=== PATIENT | male | born 1965 | race African-American/Black ===

== ENCOUNTER 2021-09-25 15:56 | Inpatient (IN) | payer OTHER ==
[~2021-09-25] VITALS: Ht 170.2 cm; Wt 64.6 kg
[2021-09-25] MEDS ORDERED: ASPIRIN CHEWABLE 81 MG TABLET. PO ONE (16:15)
[2021-09-25] MEDS ORDERED: IV NORMAL SALINE 1000ML BAG 1,000 ML IV ONE (16:15)
--- NOTE | 2021-09-25 16:17 | ED.ADGEN ---
General Adult EDM: Chief Complaint: CHEST PAIN HPI: HPI: Patient is a 55 year old male coming in for chest "discomfort" for the past 2 to 3 hours. Patient states he was sitting on his couch when the pain started. Patient denies any prior history of cardiac disease or pain like this. States he had just eaten 3 bowls of chicken soup. Patient has a history of hypertension and takes a blood pressure medication (he does not remember the name of) occasionally because he "does not want to get used to it", he did take a dose of his hypertension medicine today. No significant family medical history of cardiac disease. Denies any tobacco, alcohol, or drug use. Denies any associated symptoms. Patient states he has had both Covid vaccine. Review of Systems: Review of Systems: All other systems within normal limits except for as noted in the HPI Current Medications: Current Medications Medications (Trade) Dose Ordered Sig/Bryant Start Time Stop Time Status Last Admin Dose Admin Acetaminophen (Tylenol) 650 mg PRN Q4HRS PRN 09/25/21 17:15 09/26/21 17:14 UNV Aspirin (Aspirin Chewable) 324 mg 1X ONCE 09/25/21 16:15 09/25/21 16:38 DC 09/25/21 16:25 324 MG Aspirin (Ecotrin) 81 mg STK-MED ONCE 09/25/21 16:18 09/25/21 16:19 DC Fentanyl Citrate (Fentanyl 2ml Vial) 50 mcg PRN Q1HR PRN 09/25/21 17:15 09/26/21 17:14 UNV Heparin Sodium (Porcine) (Heparin Sodium) 1,700 unit PRN Q6HRS PRN 09/25/21 17:15 UNV Heparin Sodium/ Dextrose 250 ml @ 0 mls/hr CONT PRN 09/25/21 17:15 UNV Nitroglycerin (Nitrostat) 0.4 mg PRN Q5MIN PRN 09/25/21 16:15 09/25/21 16:37 0.4 MG Ondansetron HCl (Zofran) 4 mg PRN Q8HRS PRN 09/25/21 17:15 09/26/21 17:14 UNV Sodium Chloride 1,000 ml @ 1,000 mls/hr 1X ONCE 09/25/21 16:15 09/25/21 17:14 DC 09/25/21 16:23 1,000 MLS/HR Allergies: Allergies: Allergies Coded Allergies Type Severity Reaction Last Updated Verified No Known Drug Allergies 09/25/21 No Physical Exam: PE: Constitutional: Well developed, well nourished, no acute distress, non-toxic appearance. [] HENT: Normocephalic, atraumatic, bilateral external ears normal, nose normal. [] Eyes: PERRLA, conjunctiva normal, no discharge. [] Neck: No rigidity, supple, no stridor. [] Cardiovascular: Tachycardic, regular rhythm, brisk cap refill [] Lungs & Thorax: Non labored symmetric respirations, no tachypnea or respiratory distress [] Abdomen: Soft, nondistended. Skin: Warm, dry, no erythema, no rash. [] Back: Unremarkable Extremities: No deformities, range of motion grossly intact, no lower extremity edema [] Neurologic: Alert and oriented X 3, no focal deficits noted. [] Psychologic: Affect normal, judgement normal, mood normal. [] Current Patient Data: Labs: Laboratory Tests Test 09/25/21 16:20 White Blood Count 9.2 x10^3/uL (4.0-11.0) Red Blood Count 4.68 x10^6/uL (4.30-5.70) Hemoglobin 14.9 g/dL (13.0-17.5) Hematocrit 43.8 % (39.0-53.0) Mean Corpuscular Volume 94 fL (79-100) Mean Corpuscular Hemoglobin 32 pg (25-35) Mean Corpuscular Hemoglobin Concent 34 g/dL (31-37) Red Cell Distribution Width 13.2 % (11.5-14.5) Platelet Count 230 x10^3/uL (140-400) Neutrophils (%) (Auto) 80 % (31-73) H Lymphocytes (%) (Auto) 13 % (24-48) L Monocytes (%) (Auto) 5 % (0-9) Eosinophils (%) (Auto) 2 % (0-3) Basophils (%) (Auto) 1 % (0-3) Neutrophils # (Auto) 7.3 x10^3/uL (1.8-7.7) Lymphocytes # (Auto) 1.2 x10^3/uL (1.0-4.8) Monocytes # (Auto) 0.4 x10^3/uL (0.0-1.1) Eosinophils # (Auto) 0.2 x10^3/uL (0.0-0.7) Basophils # (Auto) 0.1 x10^3/uL (0.0-0.2) Urine Collection Type Unknown Urine Color Yellow Urine Clarity Clear Urine pH 6.0 (<5.0-8.0) Urine Specific [place] 1.025 (1.000-1.030) Urine Protein Negative mg/dL (NEG-TRACE) Urine Glucose (UA) Negative mg/dL (NEG) Urine Ketones (Stick) Negative mg/dL (NEG) Urine Blood Negative (NEG) Urine Nitrite Negative (NEG) Urine Bilirubin Negative (NEG) Urine Urobilinogen Dipstick 0.2 mg/dL (0.2 mg/dL) Urine Leukocyte Esterase Negative (NEG) Urine RBC Occ /HPF (0-2) Urine WBC Occ /HPF (0-4) Urine Bacteria 0 /HPF (0-FEW) Urine Mucus Slight /LPF Sodium Level 140 mmol/L (136-145) Potassium Level 4.2 mmol/L (3.5-5.1) Chloride Level 103 mmol/L (98-107) Carbon Dioxide Level 31 mmol/L (21-32) Anion Gap 6 (6-14) Blood Urea Nitrogen 18 mg/dL (8-26) Creatinine 1.3 mg/dL (0.7-1.3) Estimated GFR (Cockcroft-Gault) 56.9 BUN/Creatinine Ratio 14 (6-20) Glucose Level 139 mg/dL (70-99) H Calcium Level 9.0 mg/dL (8.5-10.1) Phosphorus Level 3.4 mg/dL (2.6-4.7) Magnesium Level 2.1 mg/dL (1.8-2.4) Total Bilirubin 0.6 mg/dL (0.2-1.0) Aspartate Amino Transferase (AST) 20 U/L (15-37) Alanine Aminotransferase (ALT) 25 U/L (16-63) Alkaline Phosphatase 90 U/L (46-116) Troponin I High Sensitivity 6269 ng/L (4-75) H TE-Jjo-J-Type Natriuretic Peptide 1839 pg/mL (0-124) H Total Protein 7.8 g/dL (6.4-8.2) Albumin 3.8 g/dL (3.4-5.0) Albumin/Globulin Ratio 1.0 (1.0-1.7) Lipase 81 U/L (73-393) Urine Opiates Screen Neg (NEG) Urine Methadone Screen Neg (NEG) Urine Barbiturates Neg (NEG) Urine Phencyclidine Screen Neg (NEG) Urine Amphetamine/Methamphetamine Neg (NEG) Urine Benzodiazepines Screen Neg (NEG) Urine Cocaine Screen Neg (NEG) Urine Cannabinoids Screen Neg (NEG) Ethyl Alcohol Level < 10 mg/dL (0-10) Urine Ethyl Alcohol Neg (NEG) Laboratory Tests 09/25/21 16:20 Laboratory Tests 09/25/21 16:20 Vital Signs: Vital Signs Date Time Temp Pulse Resp B/P (MAP) Pulse Ox O2 Delivery O2 Flow Rate FiO2 09/25/21 17:08 84 18 151/86 (107) 98 Room Air 09/25/21 16:03 99.5 99.5 EKG: EK :Sinus rhythm, heart rate 105 bpm, left axis deviation, LVH with strain. No prior EKG for comparison, upright T in V1, inverted nipple no STEMI 1709: Sinus rhythm, heart rate 85 beats minute, no significant change from previous EKG [] Heart Score: C/O Chest Pain: No HEART Score for Chest Pain: HEART Score for Chest Pain Response (Comments) Value History Moderately Suspicious 1 ECG Nonspecific Repolarizatio 1 Age >45 - < 65 1 Risk Factors 1 or 2 Risk Factors 1 Total 4 Risk Factors: Risk Factors: DM, Current or recent (<one month) smoker, HTN, HLP, family history of CAD, obesity. Risk Scores: Score 0 - 3: 2.5% MACE over next 6 weeks - Discharge Home Score 4 - 6: 20.3% MACE over next 6 weeks - Admit for Clinical Observation Score 7 - 10: 72.7% MACE over next 6 weeks - Early Invasive Strategies Radiology/Procedures: Radiology/Procedures: Bedside ultrasound showed cardiomegaly with wall thickening of heart, no right ventricular strain, no pericardial effusion. Comfort dropped from 8 to 2:01 sublingual nitroglycerin [facility] [address] [place] [address] IMAGING REPORT Signed PATIENT: ANDRAE BLACKWELL ACCOUNT: [id number] : 05/17/1951 LOCATION: ER AGE: 70 SEX: M EXAM STATUS: PRE ER ORD. PHYSICIAN: PEREZ KHAN MD REASON: right weakness PROCEDURE: CT CODE STROKE HEAD WO INDICATION: Reason: right weakness / Spl. Instructions: / History: COMPARISON: September 21, 2017 TECHNIQUE: Axial CT images obtained through the head without intravenous contrast. One or more of the following individualized dose reduction techniques were utilized for this examination: 1. Automated exposure control; 2. Adjustment of the mA and/or kV according to patient size; 3. Use of iterative reconstruction technique. FINDINGS: No intracranial hemorrhage. No significant midline shift. Ventricles and sulci are globally prominent. Scattered foci of low attenuation within the white matter. Calcific atherosclerosis. Deformity of the right maxillary region with plate and screws could be from prior injury and surgery. IMPRESSION: * No acute intracranial hemorrhage. * Scattered regions of low attenuation within the white matter. Non-specific in nature but a common finding and frequently secondary to small vessel ischemic disease. If there is high concern for acute causes clinically MRI could better assess acuity. Report called to ER at 12:25 PM on date of exam * Focus of low density is again seen within the left cerebral hemisphere posteriorly and right cerebellum which could be from prior insult. Electronically signed by: Isabell Mckee MD (09/25/2021 12:30 PM) DESKTOP- [id number] DICTATED and SIGNED BY: ISABELL MCKEE MD DATE: 09/25/21 [id number] 0 Course & Med Decision Making: Course & Med Decision Making Pertinent Labs and Imaging studies reviewed. (See chart for details) Discussed case with finishing machine operator automatic, Dr. Torres, who agrees with heparin drip. Requesting n.p.o. at midnight for possible Body Component Engineer tomorrow. Patient admitted to hospitalist Dr. Barry [] Bryan Disclaimer: Bryan Disclaimer: This electronic medical record was generated, in whole or in part, using a voice recognition dictation system. Departure Departure Impression: Primary Impression: NSTEMI (non-ST elevated myocardial infarction) Disposition: ADMITTED INPATIENT Admitting Physician: HIMS Condition: GUARDED PEREZ KHAN MD Sep 25, 2021 16:17
[2021-09-25] MEDS ORDERED: ASPIRIN ENTERIC COATED 81 MG TABLET.DR. PO ONE (16:18)
[2021-09-25] MEDS: NITROGLYCERIN SUBLINGUAL 0.4 MG BOTTLE OF 25. SL PRN ×3 (16:22→16:37)
[2021-09-25 16:36] LABS: BASO # 0.1 x10^3/uL (0.0-0.2); BASO % 1 % (0-3); BILIRUBIN,URINE NEGATIVE (NEG); CLARITY,URINE CLEAR; COLOR,URINE YELLOW; EOS # 0.2 x10^3/uL (0.0-0.7); EOS % 2 % (0-3); HEMATOCRIT 43.8 % (39.0-53.0); HEMOGLOBIN 14.9 g/dL (13.0-17.5); LYMPH # 1.2 x10^3/uL (1.0-4.8); LYMPH % 13 % (24-48); MEAN CORPUSCULAR HEMOGLOBIN 32 pg (25-35); MEAN CORPUSCULAR HGB CONC 34 g/dL (31-37); MEAN CORPUSCULAR VOLUME 94 fL (79-100); MONO # 0.4 x10^3/uL (0.0-1.1); MONO % 5 % (0-9); NEUT # 7.3 x10^3/uL (1.8-7.7); NEUT % 80 % (31-73); NITRITE,URINE NEGATIVE (NEG); PLATELET COUNT 230 x10^3/uL (140-400); PROTEIN,URINE NEGATIVE (NEG-TRACE); RED BLOOD COUNT 4.68 x10^6/uL (4.30-5.70); RED CELL DISTRIBUTION WIDTH 13.2 % (11.5-14.5); UROBILINOGEN,URINE 0.2 mg/dL (0.2 mg/dL); WHITE BLOOD COUNT 9.2 x10^3/uL (4.0-11.0)
[2021-09-25 16:45] LABS: BACTERIA,URINE 0 /HPF (0-FEW); RBC,URINE OCC /HPF (0-2); WBC,URINE OCC /HPF (0-4)
[2021-09-25 16:48] LABS: CREATININE 1.3 mg/dL (0.7-1.3); GFR 56.9; POTASSIUM 4.2 mmol/L (3.5-5.1)
--- NOTE | 2021-09-25 16:49 | RAD ---
XR CHEST 1V History: Reason: chest pain / Spl. Instructions: / History: Comparison: July 22, 2009 Findings: Cardiomegaly. Mild interstitial thickening. No pleural effusion. No pneumothorax. Calcified right upp er lung pulmonary nodule, likely prior granulomatous disease. Resistive curvature of the thoracolumba r spine. Impression: 1. Mild diffuse interstitial thickening, may represent pulmonary edema. 2. Unchanged cardiomegaly. Electronically signed by: Mark Kruse DO (09/25/2021 4:46 PM) [facility]
[2021-09-25 16:50] LABS: AMPHETAMINE/METHAMPHETAMINE NEG (NEG); BARBITURATES NEG (NEG); BENZODIAZEPINES NEG (NEG); CANNABINOIDS NEG (NEG); COCAINE NEG (NEG); METHADONE NEG (NEG); OPIATES NEG (NEG); PHENCYCLIDINE NEG (NEG)
[2021-09-25 16:54] LABS: ALBUMIN 3.8 g/dL (3.4-5.0); MAGNESIUM 2.1 mg/dL (1.8-2.4); PHOSPHORUS 3.4 mg/dL (2.6-4.7); TOTAL BILIRUBIN 0.6 mg/dL (0.2-1.0); TOTAL PROTEIN 7.8 g/dL (6.4-8.2)
[2021-09-25] MEDS ORDERED: HEPARIN for IV BOLUS 10,000 UNIT/10 ML VIAL. IV PRN (17:15)
[2021-09-25] MEDS ORDERED: HEPARIN for IV BOLUS 10,000 UNIT/10 ML VIAL. IV ONE (17:15)
[2021-09-25] MEDS ORDERED: ONDANSETRON PF 4 MG/2 ML VIAL. IVP PRN (17:15)
[2021-09-25] MEDS ORDERED: ACETAMINOPHEN 325 MG TABLET. PO PRN (17:15)
[2021-09-25] MEDS ORDERED: HEPARIN 25,000UTS/250ML PREMIX 250 ML IV ONE (17:31)
[2021-09-25 17:32] LABS: PROTHROMBIN TIME PATIENT 13.6 SEC (11.7-14.0)
[2021-09-25] MEDS: HEPARIN 25,000UTS/250ML PREMIX 250 ML IV PRN (17:49)
[2021-09-25 19:00] VITALS: BP 178/88
--- NOTE | 2021-09-25 19:35 | NUR ---
Patient, Joey Diaz, admitted to room 671, but admission staff had some difficulty with admitting to determined room, so he is moved to room 664, per bed, and Admitting staff able to place in room 664. 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
--- NOTE | 2021-09-25 19:39 | HP ---
DATE OF SERVICE: 09/25/2021 ADMIT DATE: 09/25/2021 CHIEF COMPLAINT: Chest discomfort. HISTORY OF PRESENT ILLNESS: The patient is a pleasant middle-aged male who felt well this morning. He was feeling so well, he ate some chicken soup and he decided to go ahead and had 4 bowls of it. After that he started having chest discomfort. He came to the ER with his . We checked labs. He has got a troponin of 6269. I discussed the case with ER physician. We placed him on a heparin drip. We consulted Cardiology. PAST MEDICAL HISTORY: Noncompliance. Cardiomegaly. ALLERGIES: None. FAMILY HISTORY: Coronary artery disease. SOCIAL HISTORY: He does not drink, smoke or take drugs. He is . MEDICATIONS: Reviewed, please refer to the MRAD. REVIEW OF SYSTEMS: GENERAL: No history of weight change, weakness or fevers. SKIN: No bruising, hair changes or rashes. EYES: No blurred, double or loss of vision. NOSE AND THROAT: No history of nosebleeds, hoarseness or sore throat. HEART: No history of palpitations, chest pain or shortness of breath on exertion. LUNGS: Denies cough, hemoptysis, wheezing or shortness of breath. GASTROINTESTINAL: Denies changes in appetite, nausea, vomiting, diarrhea or constipation. GENITOURINARY: No history of frequency, urgency, hesitancy or nocturia. NEUROLOGIC: Denies history of numbness, tingling, tremor or weakness. PSYCHIATRIC: No history of panic, anxiety or depression. ENDOCRINE: No history of heat or cold intolerance, polyuria or polydipsia. EXTREMITIES: Denies muscle weakness, joint pain, pain on walking or stiffness. PHYSICAL EXAMINATION: VITALS: Within normal limits and are stable. GENERAL: No apparent distress. Alert and oriented. HEENT: Normal cephalic atraumatic, external auditory canals are patent EYES: Extraocular muscles are intact, pupils are equally round and reactive to light and accommodation MUSCULOSKELETAL: Well developed, well nourished, good range of motion ENDOCRINE: No thyromegaly was palpated LYMPHATICS: No cervical chain or axillary nodes were noted HEMATOPOIETIC: No bruising NECK: Supple, no JVD, no thyromegaly was noted. LUNGS: Clear to auscultation in all lung ramos without rhonchi or wheezing. HEART: RRR, S1, S2 present. Peripheral pulses intact, no obvious murmurs were noted. ABDOMEN: Soft, nontender. Positive bowel sounds no organomegaly, normal bowel sounds. EXTREMITIES: Without any cyanosis, clubbing, or edema. Pedal pulses intact, Homans sign is negative. NEUROLOGIC: Normal speech, normal tone. A and O x 3, moves all extremities, no obvious focal deficits. PSYCHIATRIC: Normal affect, normal mood. Stable. SKIN: No ulcerations or rashes, good skin turgor, no jaundice. VASCULAR: Good capillary refill, neurovascular bundle appears to be intact. LABORATORY DATA: Troponin is 6269. BNP 1839, glucose 139. Hematology is normal. Electrolytes are normal. Drug screen negative. INR is 1.0. Urinalysis negative. COVID testing negative. Chest x-ray, mild diffuse interstitial thickening, may represent pulmonary edema and unchanged cardiomegaly. ASSESSMENT AND PLAN: Acute myocardial infarction. We have started the patient on a heparin drip. We are doing serial enzymes, serial EKGs, cardiac monitoring. We consulted Cardiology. tiera Benson. N.p.o. ISABEL/Chayo DR: Zacarias TID: [id number]
[2021-09-25] MEDS: fentaNYL PF VIAL 100 MCG/2 ML VIAL IVP PRN (20:10)
--- NOTE | 2021-09-25 20:29 | EKG ---
[facility] [address] [place] [address] Test Date: 2021-09-25 Test Time: 16:10:54 Pat Name: ROSEANNA GUADALUPE Department: Room: [facility] Gender: M Treater: : 1965 Requested By: PEREZ KHAN Order Number: [id number] Reading MD: Pankaj Nazario MD Measurements Intervals [place] Rate: 105 P: 59 SD: 124 QRS: -29 QRSD: 112 T: 94 QT: 346 QTc: 461 Interpretive Statements SINUS TACHYCARDIA LEFT ATRIAL ABNORMALITY LEFTWARD AXIS LVH WITH REPOLARIZATION ABNORMALITY ABNORMAL ECG Electronically Signed On 09-26-2021 2:52:09 JEWELRY JOBBER by Pankaj Nazario MD
--- NOTE | 2021-09-25 20:29 | EKG ---
[facility] [address] [place] [address] Test Date: 2021-09-25 Test Time: 17:09:42 Pat Name: ROSEANNA GUADALUPE Department: Room: [facility] Gender: M Paramedic Rn: : 1965 Requested By: PEREZ KHAN Order Number: [id number] Reading MD: Calin Beebe Measurements Intervals [place] Rate: 85 P: 49 [place]: 126 QRS: -30 QRSD: 114 T: 118 QT: 398 QTc: 480 Interpretive Statements SINUS RHYTHM COMPLEX(ES) WITH ABERRANT INTRAVENTRICULAR CONDUCTION LEFT ATRIAL ABNORMALITY ABNORMAL LEFT AXIS DEVIATION LVH WITH REPOLARIZATION ABNORMALITY PROLONGED QT ABNORMAL ECG RI6.02 Compared to ECG 09/25/2021 16:10:54 Prolonged QT interval now present Sinus tachycardia no longer present Electronically Signed On 09-26-2021 9:01:16 CONSTRUCTION IRONWORKER by Calin Beebe
[2021-09-25] MEDS ORDERED: ZOLPIDEM 5 MG TABLET. PO PRN (21:15)
[2021-09-25 22:35] VITALS: BP 163/102
[2021-09-26] VITALS (12 sets, daily range): BP systolic 152–185; BP diastolic 80–94
[2021-09-26] MEDS: fentaNYL PF VIAL 100 MCG/2 ML VIAL IVP PRN (01:37)
[2021-09-26] MEDS ORDERED: blood pressure meds (02:47)
[2021-09-26] MEDS ORDERED: LISI20TA18 PO (06:45)
[2021-09-26] MEDS ORDERED: CARV25TA2 PO (06:45)
--- NOTE | 2021-09-26 09:34 | PDOC2 ---
AMARI MORE NEEDLE VALVE OPERATOR 09/26/21 0934: CARDIAC CONSULT DATE OF CONSULT Date of Consult DATE: 09/26/21 TIME: 09:27 REASON FOR CONSULT Reason for Consult: NSTEMI REFERRING PHYSICIAN Referring Physician: Dr. Oviedo SOURCE Source: Chart review, Patient HISTORY OF PRESENT ILLNESS HISTORY OF PRESENT ILLNESS This is a 55 yo female who presented secondary to chest pain. Patient reports having large lunch yesterday and began having aching pain in his central chest a couple of hours later. Initially thought pain was due to overeating, but did not resolved so he came into the ED for further evaluation and treatment. Patient denies any associated dizziness, diaphoresis, palpitations, or shortness of breath. Pain did not radiate. He does have a history of hypertension. Has not been compliant with his medications due to impotence. Blood pressure was significantly elevated upon arrival. Reports pain resolved following ASA therapy in ED. PAST MEDICAL HISTORY Cardiovascular: HTN PAST SURGICAL HISTORY Past Surgical History: No pertinent history FAMILY HISTORY Family History: Heart Disease SOCIAL HISTORY Smoke: No ALCOHOL: social Drugs: None Lives: with Family CURRENT MEDICATIONS CURRENT MEDICATIONS Current Medications Medications (Trade) Dose Ordered Sig/Bryant Route PRN Reason Start Time Stop Time Status Last Admin Dose Admin Aspirin (Aspirin Chewable) 324 mg 1X ONCE PO 09/25/21 16:15 09/25/21 16:38 DC 09/25/21 16:25 Nitroglycerin (Nitrostat) 0.4 mg PRN Q5MIN PRN SL CHEST PAIN 09/25/21 16:15 09/25/21 16:37 Sodium Chloride 1,000 ml @ 1,000 mls/hr 1X ONCE IV 09/25/21 16:15 09/25/21 17:14 DC 09/25/21 16:23 Heparin Sodium (Porcine) (Heparin Sodium) 4,000 unit 1X ONCE IV 09/25/21 17:15 09/25/21 17:42 DC 09/25/21 17:43 Heparin Sodium/ Dextrose 250 ml @ 8.136 mls/ hr CONT PRN IV PER PROTOCOL 09/25/21 17:15 09/25/21 17:49 Fentanyl Citrate (Fentanyl 2ml Vial) 50 mcg PRN Q1HR PRN IVP PAIN 09/25/21 17:15 09/26/21 17:14 09/26/21 01:37 ALLERGIES ALLERGIES: Coded Allergies: No Known Drug Allergies (Unverified , 09/25/21) ROS Review of System 14 point ROS conducted with pertinent positives noted above in HPI PHYSICAL EXAM General: Alert, Oriented X3, Cooperative, No acute distress HEENT: Atraumatic Lungs: Clear to auscultation, Normal air movement Heart: Regular rate, No murmurs Abdomen: Soft, No tenderness Extremities: No edema, Normal pulses Skin: No breakdown, No significant lesion Neuro: Normal speech, Sensation intact Psych/Mental Status: Mental status NL, Mood NL MUSCULOSKELETAL: Osteoarthritic changes both hands VITALS/I&O VITALS/I&O: Vital Signs Date Time Temp Pulse Resp B/P (MAP) Pulse Ox O2 Delivery O2 Flow Rate FiO2 09/26/21 07:00 97.4 77 16 159/94 (115) 98 Room Air 97.4 I & O 09/25/21 09/25/21 09/26/21 15:00 23:00 07:00 Intake Total 0 ml 0 ml Output Total 150 ml 100 ml Balance -150 ml -100 ml LABS Lab: Laboratory Tests Test 09/25/21 16:20 09/25/21 17:11 09/26/21 01:20 09/26/21 07:50 White Blood Count 9.2 x10^3/uL (4.0-11.0) Red Blood Count 4.68 x10^6/uL (4.30-5.70) Hemoglobin 14.9 g/dL (13.0-17.5) Hematocrit 43.8 % (39.0-53.0) Mean Corpuscular Volume 94 fL (79-100) Mean Corpuscular Hemoglobin 32 pg (25-35) Mean Corpuscular Hemoglobin Concent 34 g/dL (31-37) Red Cell Distribution Width 13.2 % (11.5-14.5) Platelet Count 230 x10^3/uL (140-400) Neutrophils (%) (Auto) 80 % (31-73) H Lymphocytes (%) (Auto) 13 % (24-48) L Monocytes (%) (Auto) 5 % (0-9) Eosinophils (%) (Auto) 2 % (0-3) Basophils (%) (Auto) 1 % (0-3) Neutrophils # (Auto) 7.3 x10^3/uL (1.8-7.7) Lymphocytes # (Auto) 1.2 x10^3/uL (1.0-4.8) Monocytes # (Auto) 0.4 x10^3/uL (0.0-1.1) Eosinophils # (Auto) 0.2 x10^3/uL (0.0-0.7) Basophils # (Auto) 0.1 x10^3/uL (0.0-0.2) Prothrombin Time 13.6 SEC (11.7-14.0) Prothrombin Time INR 1.0 (0.8-1.1) Activated Partial Thromboplast Time 33 SEC (24-38) Urine Collection Type Unknown Urine Color Yellow Urine Clarity Clear Urine pH 6.0 (<5.0-8.0) Urine Specific [place] 1.025 (1.000-1.030) Urine Protein Negative mg/dL (NEG-TRACE) Urine Glucose (UA) Negative mg/dL (NEG) Urine Ketones (Stick) Negative mg/dL (NEG) Urine Blood Negative (NEG) Urine Nitrite Negative (NEG) Urine Bilirubin Negative (NEG) Urine Urobilinogen Dipstick 0.2 mg/dL (0.2 mg/dL) Urine Leukocyte Esterase Negative (NEG) Urine RBC Occ /HPF (0-2) Urine WBC Occ /HPF (0-4) Urine Bacteria 0 /HPF (0-FEW) Urine Mucus Slight /LPF Sodium Level 140 mmol/L (136-145) Potassium Level 4.2 mmol/L (3.5-5.1) Chloride Level 103 mmol/L (98-107) Carbon Dioxide Level 31 mmol/L (21-32) Anion Gap 6 (6-14) Blood Urea Nitrogen 18 mg/dL (8-26) Creatinine 1.3 mg/dL (0.7-1.3) Estimated GFR (Cockcroft-Gault) 56.9 BUN/Creatinine Ratio 14 (6-20) Glucose Level 139 mg/dL (70-99) H Calcium Level 9.0 mg/dL (8.5-10.1) Phosphorus Level 3.4 mg/dL (2.6-4.7) Magnesium Level 2.1 mg/dL (1.8-2.4) Total Bilirubin 0.6 mg/dL (0.2-1.0) Aspartate Amino Transferase (AST) 20 U/L (15-37) Alanine Aminotransferase (ALT) 25 U/L (16-63) Alkaline Phosphatase 90 U/L (46-116) Troponin I High Sensitivity 6269 ng/L (4-75) H TJ-Ldr-L-Type Natriuretic Peptide 1839 pg/mL (0-124) H Total Protein 7.8 g/dL (6.4-8.2) Albumin 3.8 g/dL (3.4-5.0) Albumin/Globulin Ratio 1.0 (1.0-1.7) Lipase 81 U/L (73-393) Urine Opiates Screen Neg (NEG) Urine Methadone Screen Neg (NEG) Urine Barbiturates Neg (NEG) Urine Phencyclidine Screen Neg (NEG) Urine Amphetamine/Methamphetamine Neg (NEG) Urine Benzodiazepines Screen Neg (NEG) Urine Cocaine Screen Neg (NEG) Urine Cannabinoids Screen Neg (NEG) Ethyl Alcohol Level < 10 mg/dL (0-10) Urine Ethyl Alcohol Neg (NEG) SARS-CoV-2 Antigen (Rapid) Negative (NEGATIVE) Heparin Anti-Xa Act, Unfractionated 0.44 IU/mL (0.30-0.70) 0.40 IU/mL (0.30-0.70) Laboratory Tests 09/25/21 16:20 Laboratory Tests 09/25/21 16:20 ASSESSMENT/PLAN ASSESSMENT/PLAN 1. Chest pain, typical features 2. NSTEMI; high sensitivity trop initial 6269. on heparin gtt 3. Hypertensive urgency; better controlled. Has not been compliance with medications secondary to side effects, impotence Recommendations Continue heparin gtt Repeat trop Lipids Add ASA Start metoprolol, lisinopril. Echo to assess LV systolic function Given symptomatology in setting of NSTEMI, recommend cardiac catheterization with possible PCI. R/b/a discussed with patient and he is agreeable NPO Will proceed with this morning. MIGUEL ULLOA MD 09/26/21 1500: CARDIAC CONSULT ASSESSMENT/PLAN ASSESSMENT/PLAN Patient seen and examined. Agree with GYMNASIUM TEACHER's assessment and plan. Agree with proceeding with cardiac catheterization to further evaluate patient's non-STEMI Continue heparin infusion per protocol Blood pressure better controlled since admission Check 2D echo to assess LV systolic function Thank you for your consultation AMARI MORE APRN Sep 26, 2021 09:34 MIGUEL ULLOA MD Sep 26, 2021 15:00
[2021-09-26] MEDS ORDERED: LIDOCAINE 1% PF 2 ML VIAL. ONE (10:00)
[2021-09-26] MEDS ORDERED: IODIXANOL 320 MG/ML 100 ML VIAL. ONE ×2 (10:00→11:07)
[2021-09-26] MEDS ORDERED: NITROGLYCERIN 200 MCG/2 ML SYRINGE FOR CATH/VASC LAB. ONE ×2 (10:05→10:47)
[2021-09-26] MEDS ORDERED: fentaNYL PF VIAL 100 MCG/2 ML VIAL ONE (10:05)
[2021-09-26] MEDS ORDERED: VERAPAMIL 5 MG/2 ML VIAL. ONE (10:05)
[2021-09-26] MEDS ORDERED: HEPARIN for IV BOLUS 10,000 UNIT/10 ML VIAL. ONE (10:05)
[2021-09-26] MEDS ORDERED: MIDAZOLAM HCL/PF 2 MG/2 ML VIAL. ONE (10:05)
[2021-09-26 10:11] LABS: CHOLESTEROL/HDL RATIO 3.2
[2021-09-26] MEDS ORDERED: VERAPAMIL 5 MG/2 ML VIAL. IART ONE (10:15)
[2021-09-26] MEDS ORDERED: IODIXANOL 320 MG/ML 100 ML VIAL. IART ONE (10:15)
[2021-09-26] MEDS ORDERED: HEPARIN for IV BOLUS 10,000 UNIT/10 ML VIAL. IART ONE (10:15)
[2021-09-26] MEDS ORDERED: fentaNYL PF VIAL 100 MCG/2 ML VIAL IV ONE (10:15)
[2021-09-26] MEDS ORDERED: LIDOCAINE 1% PF 2 ML VIAL. INJ ONE (10:15)
[2021-09-26] MEDS ORDERED: MIDAZOLAM HCL/PF 2 MG/2 ML VIAL. IV ONE (10:15)
[2021-09-26] MEDS ORDERED: NITROGLYCERIN 200 MCG/2 ML SYRINGE FOR CATH/VASC LAB. IART ONE (10:15)
[2021-09-26] MEDS ORDERED: CONTRAST GIVEN. MC PRN (10:30)
--- NOTE | 2021-09-26 10:41 | PDOC ---
MODERATE SEDATION ASSESSMENT RISKS/ALTERNATIVES Risks/Alternatives Risks and alternatives of this type of sedation and procedure discussed with: RISK/ALTERNATIVES: Patient H & P ON CHART H & P H & P on chart and reviewed for co-morbid conditions and appropriate labs. H&P ON CHART: Yes STATUS PREG STATUS ASSESSED: N/A MEDS/ALLERGIES REVIEWED Meds/Allergies Reviewed Medications and Allergies including time and route of recently administered narcotics and sedatives. MEDS/ALLERGIES REVIEWED: Yes ASA RATING ASA RATING: II AIRWAY ASSESSMENT Airway Assessment Airway patency, oral function limitations, presence of caps, crowns, dentures, partials, and ability to extend neck assessed. AIRWAY ASSESSMENT: Yes MALLAMPATI SCORE MALLAMPATI SCORE: II PRE-SEDATION ASSESSMENT PRE-SEDATION ASSESSMENT: Yes MIGUEL ULLOA MD Sep 26, 2021 10:41
[2021-09-26] MEDS ORDERED: LISINOPRIL 20 MG TABLET PO SCH (11:00)
--- NOTE | 2021-09-26 11:28 | CARD ---
MR#: [id number] Date of Study: 09/26/2021 Ordering Physician: MIGUEL TORRES, Referring Physician: MIGUEL TORRES Tech: RT Eliz(R) APPROVED REPORT Technologist: RT Eliz(R) Nurse: Dilia Garcia RN Procedure(s) performed: Left heart catheterization, selective coronary angiography and left ventricul ography via right transradial approach FL TIME: 9.4 MIN DOSE: 79 [id number] CONTRAST: 166 ML MODERATE SEDATION: 35 MIN INDICATION The indication(s) include : Non-STEMI. [facility] Clinical Frailty Scale [facility] Clinical Frailty Scale: Managing Well Heart Failure Heart Failure: No CASE TECHNIQUE IV conscious sedation was used throughout procedure with appropriate monitoring and was performed in the presence of a registered nurse who was an independent trained observer other than the physician p erforming the procedure. During this case, Fluoroscopy and low osmolar contrast were used for imaging . Specimen(s) Removed: No Estimated Blood loss: 15 cc's. PROCEDURE NARRATIVE After explaining the risks, benefits and alternative options, informed consent was obtained from tiesha ent. Patient was brought to the cardiac Pack Worker Supervisor and right wrist was prepped and draped in the usual fashion after confirming a positive modified Bayron's test. Arterial access was obtained in the righ t radial artery and a 6 Gibraltarian sheath was inserted. 6 Gibraltarian JL 3.5 and 6 Gibraltarian JR4 catheters were used to perform selective angiography of the left and right coronary arteries. 6 Gibraltarian pigtail cath eter was used to perform left ventriculography. Patient tolerated the procedure well. Hemostasis wa s achieved using TR band. There were no immediate complications. The following findings were noted. FINDINGS 1. Hemodynamics: Left ventricular end-diastolic pressure of 13 mmHg. No pullback gradient across th e aortic valve. 2. Left ventriculography: Severe left ventricular systolic dysfunction with ejection fraction estima frida at 10 to 15%. 1+ mitral regurgitation seen. 3. Coronary angiography: a. The left anterior descending and left circumflex arteries arose via separate ostia. b. The left anterior descending artery did not show any significant stenosis. c. The left circumflex artery was a large and dominant vessel that did not show any significant sten osis. d. The right coronary artery was a nondominant but good caliber vessel arising from the right sinus of Valsalva that did not show any significant stenosis. Conclusion 1. No significant coronary artery disease 2. Severe left ventricular systolic dysfunction with ejection fraction estimated at 10 to 15% Recommendations Optimization of medical therapy for severe nonischemic cardiomyopathy and repeat 2D echo in 3 months to evaluate the need for AICD implantation Signed by : Miguel Torres, Electronically Approved : 09/26/2021 11:28:22
[2021-09-26] MEDS: IV 1/2 NORMAL SALINE 1,000 ML IV SCH (11:30)
[2021-09-26] MEDS ORDERED: SACUBITRIL/VALSARTAN 24/26MG TABLET. PO SCH (11:45)
[2021-09-26] MEDS: METOPROLOL SUCC 24HR ER 25 MG TAB.ER.24H. PO SCH (12:21)
[2021-09-26] MEDS: ASPIRIN ENTERIC COATED 81 MG TABLET.DR. PO SCH (12:21)
[2021-09-26] MEDS: SPIRONOLACTONE 25 MG TABLET PO SCH (12:21)
--- NOTE | 2021-09-26 12:35 | NUR ---
SS following for discharge planning. SS reviewed pt chart and discussed with pt RN. Pt is from home with spouse and is currently on room air. COVID19 negative. Cardiology following. Heparin drip. Pt had heart cath today. Order for Life Vest received. Order and clinical phoned and faxed to [employer], ; fax [phone]. Discharge plan is currently to home when medically ready for discharge. SS will continue to follow for discharge planning. Addendum: 09/26/21 at 1451 by MOHAMUD CLEMENTS SS SS received notification from [employer] stating that Life Vest was approved.
--- NOTE | 2021-09-26 14:09 | PDOC ---
[employer] PROGRESS NOTE Date of Service DOS: DATE: 09/26/21 TIME: 14:07 Chief Complaint Chief Complaint NSTEMI, demand, cath clean acute systolic CHF, EF less than 15% concern for takasubo or other acute cardiomyopathy History of Present Illness History of Present Illness better BP control entresto to be started, ARB now, B-rima, cont current may need life vest, CV team followikng he feels well Vitals/I&O Vitals/I&O: Vital Signs Date Time Temp Pulse Resp B/P (MAP) Pulse Ox O2 Delivery O2 Flow Rate FiO2 09/26/21 12:21 77 155/92 09/26/21 11:20 14 99 Nasal Cannula 2.0 09/26/21 07:00 97.4 97.4 I & O 09/25/21 09/25/21 09/26/21 15:00 23:00 07:00 Intake Total 0 ml 0 ml Output Total 150 ml 100 ml Balance -150 ml -100 ml Physical Exam General: Alert, Oriented X3, Cooperative, No acute distress Heart: Regular rate, No murmurs Abdomen: Soft, No tenderness Extremities: No edema, Normal pulses Skin: No breakdown, No significant lesion Labs Labs: Laboratory Tests Test 09/25/21 16:20 09/25/21 17:11 09/26/21 01:20 09/26/21 07:50 White Blood Count 9.2 x10^3/uL (4.0-11.0) Red Blood Count 4.68 x10^6/uL (4.30-5.70) Hemoglobin 14.9 g/dL (13.0-17.5) Hematocrit 43.8 % (39.0-53.0) Mean Corpuscular Volume 94 fL (79-100) Mean Corpuscular Hemoglobin 32 pg (25-35) Mean Corpuscular Hemoglobin Concent 34 g/dL (31-37) Red Cell Distribution Width 13.2 % (11.5-14.5) Platelet Count 230 x10^3/uL (140-400) Neutrophils (%) (Auto) 80 % (31-73) Lymphocytes (%) (Auto) 13 % (24-48) Monocytes (%) (Auto) 5 % (0-9) Eosinophils (%) (Auto) 2 % (0-3) Basophils (%) (Auto) 1 % (0-3) Neutrophils # (Auto) 7.3 x10^3/uL (1.8-7.7) Lymphocytes # (Auto) 1.2 x10^3/uL (1.0-4.8) Monocytes # (Auto) 0.4 x10^3/uL (0.0-1.1) Eosinophils # (Auto) 0.2 x10^3/uL (0.0-0.7) Basophils # (Auto) 0.1 x10^3/uL (0.0-0.2) Prothrombin Time 13.6 SEC (11.7-14.0) Prothromb Time International Ratio 1.0 (0.8-1.1) Activated Partial Thromboplast Time 33 SEC (24-38) Urine Collection Type Unknown Urine Color Yellow Urine Clarity Clear Urine pH 6.0 (<5.0-8.0) Urine Specific [place] 1.025 (1.000-1.030) Urine Protein Negative mg/dL (NEG-TRACE) Urine Glucose (UA) Negative mg/dL (NEG) Urine Ketones (Stick) Negative mg/dL (NEG) Urine Blood Negative (NEG) Urine Nitrite Negative (NEG) Urine Bilirubin Negative (NEG) Urine Urobilinogen Dipstick 0.2 mg/dL (0.2 mg/dL) Urine Leukocyte Esterase Negative (NEG) Urine RBC Occ /HPF (0-2) Urine WBC Occ /HPF (0-4) Urine Bacteria 0 /HPF (0-FEW) Urine Mucus Slight /LPF Sodium Level 140 mmol/L (136-145) Potassium Level 4.2 mmol/L (3.5-5.1) Chloride Level 103 mmol/L (98-107) Carbon Dioxide Level 31 mmol/L (21-32) Anion Gap 6 (6-14) Blood Urea Nitrogen 18 mg/dL (8-26) Creatinine 1.3 mg/dL (0.7-1.3) Estimated GFR (Cockcroft-Gault) 56.9 BUN/Creatinine Ratio 14 (6-20) Glucose Level 139 mg/dL (70-99) Calcium Level 9.0 mg/dL (8.5-10.1) Phosphorus Level 3.4 mg/dL (2.6-4.7) Magnesium Level 2.1 mg/dL (1.8-2.4) Total Bilirubin 0.6 mg/dL (0.2-1.0) Aspartate Amino Transf (AST/SGOT) 20 U/L (15-37) Alanine Aminotransferase (ALT/SGPT) 25 U/L (16-63) Alkaline Phosphatase 90 U/L (46-116) Troponin I High Sensitivity 6269 ng/L (4-75) CP-Syj-U-Type Natriuretic Peptide 1839 pg/mL (0-124) Total Protein 7.8 g/dL (6.4-8.2) Albumin 3.8 g/dL (3.4-5.0) Albumin/Globulin Ratio 1.0 (1.0-1.7) Lipase 81 U/L (73-393) Urine Opiates Screen Neg (NEG) Urine Methadone Screen Neg (NEG) Urine Barbiturates Neg (NEG) Urine Phencyclidine Screen Neg (NEG) Urine Amphetamine/Methamphetamine Neg (NEG) Urine Benzodiazepines Screen Neg (NEG) Urine Cocaine Screen Neg (NEG) Urine Cannabinoids Screen Neg (NEG) Ethyl Alcohol Level < 10 mg/dL (0-10) Urine Ethyl Alcohol Neg (NEG) SARS-CoV-2 RNA (MARIA DOLORES) Negative (Negative) SARS-CoV-2 Antigen (Rapid) Negative (NEGATIVE) Heparin Anti-Xa Act, Unfractionated 0.44 IU/mL (0.30-0.70) 0.40 IU/mL (0.30-0.70) Triglycerides Level 38 mg/dL (0-150) Cholesterol Level 191 mg/dL (0-200) LDL Cholesterol, Calculated 123 mg/dL (0-100) VLDL Cholesterol, Calculated 8 mg/dL (0-40) Non-HDL Cholesterol Calculated 131 mg/dL (0-129) HDL Cholesterol 60 mg/dL (40-60) Cholesterol/HDL Ratio 3.2 Test 09/26/21 10:15 Troponin I High Sensitivity 07963 ng/L (4-75) Review of Systems Review of Systems: no nn,v,.d Comment Review of Relevant I have reviewed the following items juanis (where applicable) has been applied. Medications: Current Medications Medications (Trade) Dose Ordered Sig/Bryant Route PRN Reason Start Time Stop Time Status Last Admin Dose Admin Aspirin (Aspirin Chewable) 324 mg 1X ONCE PO 09/25/21 16:15 09/25/21 16:38 DC 09/25/21 16:25 Nitroglycerin (Nitrostat) 0.4 mg PRN Q5MIN PRN SL CHEST PAIN 09/25/21 16:15 09/25/21 16:37 Sodium Chloride 1,000 ml @ 1,000 mls/hr 1X ONCE IV 09/25/21 16:15 09/25/21 17:14 DC 09/25/21 16:23 Heparin Sodium (Porcine) (Heparin Sodium) 4,000 unit 1X ONCE IV 09/25/21 17:15 09/25/21 17:42 DC 09/25/21 17:43 Heparin Sodium/ Dextrose 250 ml @ 8.136 mls/ hr CONT PRN IV PER PROTOCOL 09/25/21 17:15 09/25/21 17:49 Fentanyl Citrate (Fentanyl 2ml Vial) 50 mcg PRN Q1HR PRN IVP PAIN 09/25/21 17:15 09/26/21 17:14 09/26/21 01:37 Aspirin (Ecotrin) 81 mg DAILYWBKFT PO 09/26/21 09:45 09/26/21 12:21 Nitroglycerin (Nitroglycerin) 200 mcg 1X ONCE IART 09/26/21 10:15 09/26/21 10:17 DC 09/26/21 10:47 Verapamil HCl (Verapamil) 2.5 mg 1X ONCE IART 09/26/21 10:15 09/26/21 10:17 DC 09/26/21 10:47 Heparin Sodium (Porcine) (Heparin Sodium) 2,500 unit 1X ONCE IART 09/26/21 10:15 09/26/21 10:26 DC 09/26/21 10:47 Heparin Sodium/ Sodium Chloride (HEPARIN for ARTERIAL LINE FLUSH) 1,000 unit 1X ONCE IART 09/26/21 10:15 09/26/21 10:26 DC 09/26/21 10:15 Heparin Sodium/ Sodium Chloride (HEPARIN for ARTERIAL LINE FLUSH) 1,000 unit 1X ONCE IART 09/26/21 10:15 09/26/21 10:26 DC 09/26/21 10:15 Midazolam HCl (Versed) 2 mg 1X ONCE IV 09/26/21 10:15 09/26/21 10:26 DC 09/26/21 10:45 Fentanyl Citrate (Fentanyl 2ml Vial) 100 mcg 1X ONCE IV 09/26/21 10:15 09/26/21 10:26 DC 09/26/21 10:45 Iodixanol (Visipaque 320) 100 ml 1X ONCE IART 09/26/21 10:15 09/26/21 10:26 DC 09/26/21 11:10 Lidocaine HCl (Xylocaine-Mpf 1% 2ml Vial) 2 ml 1X ONCE INJ 09/26/21 10:15 09/26/21 10:26 DC 09/26/21 10:46 Metoprolol Succinate (Toprol Xl) 25 mg DAILY PO 09/26/21 11:00 09/26/21 12:21 Spironolactone (Aldactone) 25 mg DAILY PO 09/26/21 12:00 09/26/21 12:21 Justifications for Admission Other Justification ABHIJIT STARKS MD Sep 26, 2021 14:09
--- NOTE | 2021-09-26 17:53 | CARD ---
MR#: [id number] Date of Study: 09/26/2021 Ordering Physician: AMARI MORE, Referring Physician: AMARI MORE, Tech: Iman Corona [facility] APPROVED REPORT EXAM: Two-dimensional and M-mode echocardiogram with Doppler and color Doppler. Other Information Quality : GoodHR: 81bpm Rhythm : NSR INDICATION Cardiomyopathy Chest Pain RISK FACTORS Hypertension 2D DIMENSIONS RVDd3.2 (2.9-3.5cm)Left Atrium(2D)4.5 (1.6-4.0cm) IVSd1.2 (0.7-1.1cm)Aortic Root(2D)3.5 (2.0-3.7cm) LVDd6.6 (3.9-5.9cm)LVOT Diameter2.3 (1.8-2.4cm) PWd1.2 (0.7-1.1cm)LVDs6.2 (2.5-4.0cm) FS (%) 6.0 %SV29.1 ml Aortic Valve AoV Peak Diaz.106.3cm/sAoV VTI17.4cm AO Peak GR.4.5mmHgLVOT Peak Diaz.70.6cm/s AO Mean GR.2mmHgAVA (VMAX)2.72cm2 Mitral Valve MV E Unagpnng477.6cm/sMV DECEL SQIA476nx MV A Phplaxpy364.0cm/sE/A Ratio1.2 Pulmonary Valve PV Peak Gbokqsok04.0cm/s Tricuspid Valve TR P. Zqlfukhb003ue/sTR Peak Gr.27mmHg LEFT VENTRICLE The Left Ventricle is moderately dilated. There is borderline to mild concentric left ventricular hyp ertrophy. The ejection fraction is severely impaired. LV ejection fraction is estimated at 10%. The re is severe global hypokinesis of the left ventricle. Transmitral Doppler flow pattern is Grade III- reversible restrictive diastolic dysfunction. RIGHT VENTRICLE The right ventricle is normal size. There is normal right ventricular wall thickness. Systolic functi on is mildly to moderately reduced. ATRIA The left atrium is moderately dilated. The right atrium size is normal. The interatrial septum is int act with no evidence for an atrial septal defect or patent foramen ovale as noted on 2-D or Doppler i maging. AORTIC VALVE The aortic valve is normal in structure and function. Doppler and Color Flow revealed no significant aortic regurgitation. There is no significant aortic valvular stenosis. MITRAL VALVE The mitral valve is normal in structure and function. There is no evidence of mitral valve prolapse. There is no mitral valve stenosis. Doppler and Color-flow revealed moderate mitral regurgitation. TRICUSPID VALVE The tricuspid valve is normal in structure and function. Doppler and Color Flow revealed mild tricusp id regurgitation. Estimated PAP 30 mmHg. There is no tricuspid valve stenosis. GREAT VESSELS The aortic root is normal in size. The ascending aorta is normal in size. The IVC is normal in size a nd collapses >50% with inspiration. PERICARDIAL EFFUSION There is no evidence of significant pericardial effusion. Critical Notification Critical Value: No <Conclusion> The Left Ventricle is moderately dilated. The ejection fraction is severely impaired. LV ejection fraction is estimated at 10%. There is severe global hypokinesis of the left ventricle. There is borderline to mild concentric left ventricular hypertrophy. Doppler and Color Flow revealed no significant aortic regurgitation. There is no significant aortic valvular stenosis. Doppler and Color-flow revealed moderate mitral regurgitation. Doppler and Color Flow revealed mild tricuspid regurgitation. Estimated PAP 30 mmHg. Signed by : Calin Beebe MD Electronically Approved : 09/26/2021 17:52:35
[2021-09-26] MEDS ORDERED: ACETAMINOPHEN 325 MG TABLET. PO PRN (21:15)
[2021-09-26] MEDS: HEPARIN 25,000UTS/250ML PREMIX 250 ML IV PRN (21:26)
[2021-09-27 02:39] VITALS: BP 162/88
[2021-09-27] MEDS: IV 1/2 NORMAL SALINE 1,000 ML IV SCH (04:10)
[2021-09-27 07:43] VITALS: BP 163/80
[2021-09-27] MEDS ORDERED: CLOPIDOGREL BISULFATE 75 MG TABLET PO SCH (08:00)
[2021-09-27] MEDS: SPIRONOLACTONE 25 MG TABLET PO SCH (08:59)
[2021-09-27] MEDS: ASPIRIN ENTERIC COATED 81 MG TABLET.DR. PO SCH (08:59)
[2021-09-27] MEDS: METOPROLOL SUCC 24HR ER 25 MG TAB.ER.24H. PO SCH (08:59)
[2021-09-27] MEDS ORDERED: LOSARTAN POTASSIUM 50 MG TABLET. PO SCH (09:00)
[2021-09-27] MEDS ORDERED: FUROSEMIDE 40 MG TABLET. PO PRN (09:45)
--- NOTE | 2021-09-27 09:59 | PDOC ---
FARZANEH WINN INTERLOCKING AND SIGNAL MECHANIC 09/27/21 0959: CARDIO Progress Notes Date and Time Date of Service 09/27/2021 Time of Evaluation 0930 Subjective Subjective: No Chest Pain, No shortness of breath, No Palpitations Vitals Vitals Vital Signs Date Time Temp Pulse Resp B/P (MAP) Pulse Ox O2 Delivery O2 Flow Rate FiO2 09/27/21 08:59 69 163/80 09/27/21 07:43 97.9 18 98 Room Air 97.9 09/26/21 11:20 2.0 Weight Weight [ ] Input and Output Intake and Output Intake and Output 09/27/21 07:00 Intake Total 280 ml Output Total 400 ml Balance -120 ml Intake Oral 280 ml Output Urine Total 400 ml Laboratory Labs Laboratory Tests Test 09/26/21 10:15 09/26/21 18:35 09/27/21 03:00 Troponin I High Sensitivity 37392 ng/L (4-75) Heparin Anti-Xa Act, Unfractionated 0.59 IU/mL (0.30-0.70) 0.78 IU/mL (0.30-0.70) Physical Exam HEENT: Neck Supple W Full Motion Chest: Symmetric LUNGS: Clear to Auscultation Heart: S1S2, RRR (SR) Abdomen: Soft N/T Extremities: No Edema, No Calf Tenderness Neurology: alert, oriented, follow commands Assessment Assessment 1. NSTEMI; due CM. no significant CAD per [facility] 2. Severe NICM: EF at 10-15%, unclear etiology, myocarditis part of the differential 3. Hypertensive urgency: remains labile 4. HLP 5. NSVT Recommendations 1. optimize HF regimen, Aldactone, losartan, toprol. Lasix PRN. Start on amiodarone 2. Start on statin. Continue ASA/plavix 3. Lifevest. HF education. Consider for outpt cardiac MRI 4. Follow up with Dr. Ulloa on Oct 27 2:15PM. He will need to apply for [place] Justicifation of Admission Dx: Justifications for Admission: Justification of Admission Dx: Yes MIGUEL ULLOA MD 09/27/21 1508: CARDIO Progress Notes Assessment Assessment Patient seen and examined. Agree with CUPOLA MAN's assessment and plan. Cardiac catheterization yesterday did not show any significant coronary artery disease Non-STEMI could be secondary to myocarditis Optimize medical therapy for severe nonischemic cardiomyopathy Agree with LifeVest upon discharge. Repeat 2D echo in 3 months to evaluate need for AICD implantation Start amiodarone for recurrent nonsustained VT. FARZANEH WINN APRN Sep 27, 2021 09:59 MIGUEL ULLOA MD Sep 27, 2021 15:08
[2021-09-27] MEDS ORDERED: AMIODARONE HCL 200 MG TABLET. PO SCH (10:30)
--- NOTE | 2021-09-27 10:32 | NUR ---
SS following for discharge planning. SS reviewed pt chart and discussed with pt RN. Pt is currently on room air. COVID19 negative. Life Vest delivered to pt in room today. No PT/OT needs. Probable discharge to home today. SS will continue to follow for discharge planning.
[2021-09-27] MEDS ORDERED: METOPROLOL SUCC 24HR ER 25 MG TAB.ER.24H. PO ONE (10:45)
[2021-09-27] MEDS ORDERED: LOSARTAN POTASSIUM 50 MG TABLET. PO ONE (10:45)
[2021-09-27 11:18] VITALS: BP 169/79
[2021-09-27 11:21] VITALS: BP 169/79
--- NOTE | 2021-09-27 11:31 | PDOC ---
[employer] PROGRESS NOTE Date of Service DOS: DATE: 09/27/21 TIME: 11:30 Chief Complaint Chief Complaint NSTEMI, type 2, demand, cath clean acute systolic CHF, EF less than 15% chronic hypertension History of Present Illness History of Present Illness DC home better BP control entresto to be started, ARB now, B-rima, cont current may need life vest, CV team followikng he feels well Vitals/I&O Vitals/I&O: Vital Signs Date Time Temp Pulse Resp B/P (MAP) Pulse Ox O2 Delivery O2 Flow Rate FiO2 09/27/21 11: 69 169/79 09/27/21 11:18 98.5 18 98 Room Air 98.5 09/26/21 11:20 2.0 I & O 09/26/21 09/26/21 09/27/21 15:00 23:00 07:00 Intake Total 180 ml 100 ml 0 ml Output Total 400 ml Balance 180 ml -300 ml 0 ml Physical Exam General: Alert, Oriented X3, Cooperative, No acute distress Heart: Regular rate, No murmurs Abdomen: Soft, No tenderness Extremities: No edema, Normal pulses Skin: No breakdown, No significant lesion Labs Labs: Laboratory Tests Test 09/26/21 18:35 09/27/21 03:00 09/27/21 10:25 Heparin Anti-Xa Act, Unfractionated 0.59 IU/mL (0.30-0.70) 0.78 IU/mL (0.30-0.70) 0.53 IU/mL (0.30-0.70) Thyroid Stimulating Hormone (TSH) 1.841 uIU/mL (0.358-3.74) Comment Review of Relevant I have reviewed the following items juanis (where applicable) has been applied. Medications: Current Medications Medications (Trade) Dose Ordered Sig/Bryant Route PRN Reason Start Time Stop Time Status Last Admin Dose Admin Spironolactone (Aldactone) 25 mg DAILY PO 09/26/21 12:00 09/27/21 08:59 Clopidogrel Bisulfate (Plavix) 75 mg DAILYWBKFT PO 09/27/21 08:00 09/27/21 08:59 Losartan Potassium (Cozaar) 50 mg DAILY PO 09/27/21 09:00 09/27/21 09:37 DC 09/27/21 08:59 Acetaminophen (Tylenol) 650 mg PRN Q6HRS PRN PO MILD PAIN / TEMP > 100.3'F 09/26/21 21:15 09/26/21 21:19 Amiodarone HCl (Cordarone) 400 mg DAILY PO 09/27/21 10:30 09/27/21 11:21 Losartan Potassium (Cozaar) 50 mg 1X ONCE PO 09/27/21 10:45 09/27/21 10:46 DC 09/27/21 11:21 Metoprolol Succinate (Toprol Xl) 25 mg 1X ONCE PO 09/27/21 10:45 09/27/21 10:46 DC 09/27/21 11:21 Justifications for Admission Other Justification ABHIJIT STARKS MD Sep 27, 2021 11:31
--- NOTE | 2021-09-27 11:33 | PDOC3 ---
Discharge Summary Visit Information Date of Admission: Sep 25, 2021 Date of Discharge: Sep 27, 2021 Final Diagnosis 1. NSTEMI; type 2, acute sytoclic CHF and cardiomyopathy, no significant CAD 2. non-ischemic cardiomyopathy, EF at 10-15%, unclear etiology, poss myocarditis 3. Hypertensive urgency: on amdit, ongoing htn 4. HLP 5. short runs of vtach, risk of arrythmia Brief Hospital Course Allergies Allergies Coded Allergies Type Severity Reaction Last Updated Verified No Known Drug Allergies 09/25/21 No Vital Signs Vital Signs Date Time Temp Pulse Resp B/P (MAP) Pulse Ox O2 Delivery O2 Flow Rate FiO2 09/27/21 11:21 69 169/79 09/27/21 11:18 98.5 18 98 Room Air 98.5 09/26/21 11:20 2.0 Lab Results Laboratory Tests Test 09/25/21 16:20 09/25/21 17:11 09/26/21 01:20 09/26/21 07:50 White Blood Count 9.2 x10^3/uL (4.0-11.0) Red Blood Count 4.68 x10^6/uL (4.30-5.70) Hemoglobin 14.9 g/dL (13.0-17.5) Hematocrit 43.8 % (39.0-53.0) Mean Corpuscular Volume 94 fL (79-100) Mean Corpuscular Hemoglobin 32 pg (25-35) Mean Corpuscular Hemoglobin Concent 34 g/dL (31-37) Red Cell Distribution Width 13.2 % (11.5-14.5) Platelet Count 230 x10^3/uL (140-400) Neutrophils (%) (Auto) 80 % (31-73) Lymphocytes (%) (Auto) 13 % (24-48) Monocytes (%) (Auto) 5 % (0-9) Eosinophils (%) (Auto) 2 % (0-3) Basophils (%) (Auto) 1 % (0-3) Neutrophils # (Auto) 7.3 x10^3/uL (1.8-7.7) Lymphocytes # (Auto) 1.2 x10^3/uL (1.0-4.8) Monocytes # (Auto) 0.4 x10^3/uL (0.0-1.1) Eosinophils # (Auto) 0.2 x10^3/uL (0.0-0.7) Basophils # (Auto) 0.1 x10^3/uL (0.0-0.2) Prothrombin Time 13.6 SEC (11.7-14.0) Prothromb Time International Ratio 1.0 (0.8-1.1) Activated Partial Thromboplast Time 33 SEC (24-38) Urine Collection Type Unknown Urine Color Yellow Urine Clarity Clear Urine pH 6.0 (<5.0-8.0) Urine Specific [place] 1.025 (1.000-1.030) Urine Protein Negative mg/dL (NEG-TRACE) Urine Glucose (UA) Negative mg/dL (NEG) Urine Ketones (Stick) Negative mg/dL (NEG) Urine Blood Negative (NEG) Urine Nitrite Negative (NEG) Urine Bilirubin Negative (NEG) Urine Urobilinogen Dipstick 0.2 mg/dL (0.2 mg/dL) Urine Leukocyte Esterase Negative (NEG) Urine RBC Occ /HPF (0-2) Urine WBC Occ /HPF (0-4) Urine Bacteria 0 /HPF (0-FEW) Urine Mucus Slight /LPF Sodium Level 140 mmol/L (136-145) Potassium Level 4.2 mmol/L (3.5-5.1) Chloride Level 103 mmol/L (98-107) Carbon Dioxide Level 31 mmol/L (21-32) Anion Gap 6 (6-14) Blood Urea Nitrogen 18 mg/dL (8-26) Creatinine 1.3 mg/dL (0.7-1.3) Estimated GFR (Cockcroft-Gault) 56.9 BUN/Creatinine Ratio 14 (6-20) Glucose Level 139 mg/dL (70-99) Calcium Level 9.0 mg/dL (8.5-10.1) Phosphorus Level 3.4 mg/dL (2.6-4.7) Magnesium Level 2.1 mg/dL (1.8-2.4) Total Bilirubin 0.6 mg/dL (0.2-1.0) Aspartate Amino Transf (AST/SGOT) 20 U/L (15-37) Alanine Aminotransferase (ALT/SGPT) 25 U/L (16-63) Alkaline Phosphatase 90 U/L (46-116) Troponin I High Sensitivity 6269 ng/L (4-75) GR-Afl-B-Type Natriuretic Peptide 1839 pg/mL (0-124) Total Protein 7.8 g/dL (6.4-8.2) Albumin 3.8 g/dL (3.4-5.0) Albumin/Globulin Ratio 1.0 (1.0-1.7) Lipase 81 U/L (73-393) Urine Opiates Screen Neg (NEG) Urine Methadone Screen Neg (NEG) Urine Barbiturates Neg (NEG) Urine Phencyclidine Screen Neg (NEG) Urine Amphetamine/Methamphetamine Neg (NEG) Urine Benzodiazepines Screen Neg (NEG) Urine Cocaine Screen Neg (NEG) Urine Cannabinoids Screen Neg (NEG) Ethyl Alcohol Level < 10 mg/dL (0-10) Urine Ethyl Alcohol Neg (NEG) SARS-CoV-2 RNA (MARIA DOLORES) Negative (Negative) SARS-CoV-2 Antigen (Rapid) Negative (NEGATIVE) Heparin Anti-Xa Act, Unfractionated 0.44 IU/mL (0.30-0.70) 0.40 IU/mL (0.30-0.70) Triglycerides Level 38 mg/dL (0-150) Cholesterol Level 191 mg/dL (0-200) LDL Cholesterol, Calculated 123 mg/dL (0-100) VLDL Cholesterol, Calculated 8 mg/dL (0-40) Non-HDL Cholesterol Calculated 131 mg/dL (0-129) HDL Cholesterol 60 mg/dL (40-60) Cholesterol/HDL Ratio 3.2 Test 09/26/21 10:15 09/26/21 18:35 09/27/21 03:00 09/27/21 10:25 Troponin I High Sensitivity 78158 ng/L (4-75) Heparin Anti-Xa Act, Unfractionated 0.59 IU/mL (0.30-0.70) 0.78 IU/mL (0.30-0.70) 0.53 IU/mL (0.30-0.70) Thyroid Stimulating Hormone (TSH) 1.841 uIU/mL (0.358-3.74) Laboratory Tests Test 09/26/21 18:35 09/27/21 03:00 09/27/21 10:25 Heparin Anti-Xa Act, Unfractionated 0.59 IU/mL (0.30-0.70) 0.78 IU/mL (0.30-0.70) 0.53 IU/mL (0.30-0.70) Thyroid Stimulating Hormone (TSH) 1.841 uIU/mL (0.358-3.74) Brief Hospital Course Mr. 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 optimize HF regimen, Aldactone, losartan, toprol. Lasix PRN. Start on amiodarone 2. Start on statin. Continue ASA/plavix 3. Lifevest. HF education. Consider for outpt cardiac MRI 4. Follow up with Dr. Torres on Oct 27 2:15PM. He will need to apply for [place] Discharge Information Condition at Discharge: Improved Follow Up: Weeks Disposition/Orders: D/C to Home Scheduled Carvedilol (Carvedilol) 25 Mg Tablet, 6.25 MG PO BIDWMEALS for CARDIAC, (Reported) Entered as Reported by: LACI PAN on 09/26/21644 Last Action: New Order on 09/26/21644 by LACI PAN Lisinopril (Lisinopril) 20 Mg Tablet, 25 MG PO DAILY for FOR HYPERTENSION, #30 Ref 0 (Reported) Entered as Reported by: LACI PAN on 09/26/21644 Last Action: New Order on 09/26/21644 by LACI PAN Miscellaneous Medications [blood pressure meds] , (Reported) Entered as Reported by: LACI PAN on 09/26/21246 Last Action: New Order on 09/26/21246 by LACI PAN Patient Instructions Patient Instructions face to face coordination time 32 min Justicifation of Admission Dx: Justifications for Admission: Justification of Admission Dx: Yes ABHIJIT STARKS MD Sep 27, 2021 11:33
[2021-09-27] MEDS ORDERED: METO50TA4 PO (12:36)
[2021-09-27] MEDS ORDERED: ATOR20TA58 PO (12:36)
[2021-09-27] MEDS ORDERED: FURO-69 PO (12:36)
[2021-09-27] MEDS ORDERED: AMIO200T53 PO (12:36)
[2021-09-27] MEDS ORDERED: SPIR25TA PO (12:36)
[2021-09-27] MEDS ORDERED: CLOP75TA PO (12:36)
[2021-09-27] MEDS ORDERED: ASPI-886 PO (12:36)
[2021-09-27] MEDS ORDERED: LOSA100T14 PO (12:42)
--- NOTE | 2021-09-27 13:20 | NUR ---
DISCHARGED PATIENT TO HOME. DISCHARGE INSTRUCTIONS GIVEN. PIV AND HEART MONITOR GIVEN. ESCORTED PATIENT OFF UNIT PER WHEELCHAIR INT A PRIVATE VEHICLE.
[2021-09-27] MEDS ORDERED: ATORVASTATIN CALCIUM 20 MG TABLET PO SCH (21:00)
[2021-09-28] MEDS ORDERED: METOPROLOL SUCC 24HR ER 50 MG TAB.ER.24H. PO SCH (09:00)
[2021-09-28] MEDS ORDERED: LOSARTAN POTASSIUM 50 MG TABLET. PO SCH (09:00)
== END 2021-09-27 13:20 | disposition home or self-care (01) | DRG 280 ==
LOC: ER 15:56 → 6 SOUTH 17:26 → ER 18:34
PROVIDERS: ADMIT Internal Medicine; ATTEND Internal Medicine
PROC: 4A023N7 Measurement of Cardiac Sampling and Pressure, Left Heart, Percutaneous Approach (ICD-10-PCS; principal; 2021-09-26)
PROC: B2111ZZ Fluoroscopy of Multiple Coronary Arteries using Low Osmolar Contrast (ICD-10-PCS; 2021-09-26)
PROC: B2151ZZ Fluoroscopy of Left Heart using Low Osmolar Contrast (ICD-10-PCS; 2021-09-26)
DX: I11.0 Hypertensive heart disease with heart failure (principal); I50.21 Acute systolic (congestive) heart failure; I21.A1 Myocardial infarction type 2; I47.2 Ventricular tachycardia; I42.8 Other cardiomyopathies; E78.5 Hyperlipidemia, unspecified; I16.0 Hypertensive urgency; N52.9 Male erectile dysfunction, unspecified; Z79.02 Long term (current) use of antithrombotics/antiplatelets; Z79.82 Long term (current) use of aspirin; Z82.49 Family history of ischemic heart disease and other diseases of the circulatory system; Z91.19 Patient's noncompliance with other medical treatment and regimen
CPT/HCPCS: 36415; 71045; 80053; 80061; 80307; 81001; 83690; 83735; 83880; 84100; 84443; 84484; 85025; 85520; 85610; 85730; 87426; 93005; 93306; 93458; 96361; 96365; 96376; 99152; 99153; C1894; G0480; J1644; J2250; J3010; J3490; J7030; Q9967; U0003; U0005; 99285-25; G0378

== ENCOUNTER 2021-10-05 09:43 | Emergency (ER) | payer OTHER ==
[~2021-10-05] VITALS: Ht 170.2 cm; Wt 68.0 kg
[~2021-10-05 09:43] MED LIST: AMIO200T53 PO; ASPI-886 PO; ATOR20TA58 PO; CARV25TA2 PO; CLOP75TA PO; FURO-69 PO; LISI20TA18 PO; LOSA100T14 PO; METO50TA4 PO; SPIR25TA PO; blood pressure meds
[2021-10-05 10:20] VITALS: BP 152/69
--- NOTE | 2021-10-05 10:25 | PHYS DOC ---
Past Medical History Past Surgical History: No Surgical History Smoking Status: Never Smoker Alcohol Use: None General Adult EDM: Chief Complaint: IV SITE PAIN HPI: HPI: Patient is a 55 year old male presented to the ER for evaluation of pain at the iv site. Patient was evaluated on September 25, 2021, had IV placed on right forearm area. Patient said he still has pain at the IV site. He denies any fever, no chest pain, no abdominal pain, no trouble breathing. Review of Systems: Review of Systems: Constitutional: Denies fever or chills. [] Eyes: Denies change in visual acuity. [] HENT: Denies nasal congestion or sore throat. [] Respiratory: Denies cough or shortness of breath. [] Cardiovascular: Denies chest pain or edema. [] GI: Denies abdominal pain, nausea, vomiting, bloody stools or diarrhea. [] : Denies dysuria. [] Musculoskeletal: Denies back pain or joint pain. [] Integument: Denies rash. [] Neurologic: Denies headache, focal weakness or sensory changes. [] Endocrine: Denies polyuria or polydipsia. [] Lymphatic: Denies swollen glands. [] Psychiatric: Denies depression or anxiety. [] Heart Score: C/O Chest Pain: N/A Risk Factors: Risk Factors: DM, Current or recent (<one month) smoker, HTN, HLP, family history of CAD, obesity. Risk Scores: Score 0 - 3: 2.5% MACE over next 6 weeks - Discharge Home Score 4 - 6: 20.3% MACE over next 6 weeks - Admit for Clinical Observation Score 7 - 10: 72.7% MACE over next 6 weeks - Early Invasive Strategies Allergies: Allergies: Allergies Coded Allergies Type Severity Reaction Last Updated Verified No Known Drug Allergies 09/25/21 No Physical Exam: PE: Constitutional: Well developed, well nourished, no acute distress, non-toxic appearance. [] Skin: Warm, dry, no erythema, no rash. [] Extremities: there is some tender at IV site on right forearm area. There is no obvious swelling or induration noted. There is good distal radial pulse. no neurovascular deficit. Neurologic: Alert and oriented X 3, normal motor function, normal sensory function, no focal deficits noted. [] Psychologic: Affect normal, judgement normal, mood normal. [] EKG: EKG: [] Radiology/Procedures: Radiology/Procedures: [] Course & Med Decision Making: Course & Med Decision Making Pertinent Labs and Imaging studies reviewed. (See chart for details) Patient had phlebitis from IV insertion on Right forearm. No further work-up needed. Patient was advised to take ibuprofen as needed for pain. Dragon Disclaimer: Dragon Disclaimer: This electronic medical record was generated, in whole or in part, using a voice recognition dictation system. Departure Departure Impression: Primary Impression: Phlebitis Disposition: HOME / SELF CARE / HOMELESS Condition: STABLE Referrals: KACI AYALA III, DO (PCP) Follow up with your doctor as needed Patient Instructions: Phlebitis Additional Instructions: Thank you for visiting our Emergency Department. We appreciate you trusting us with your care. If any additional problems come up don't hesitate to return to visit us. Please follow up with your primary care provider so they can plan additional care if needed and know about the problem that you had. If symptoms worsen come back to the Emergency Department. Any concerning symptoms that start such as chest pain, shortness of air, weakness or numbness on one side of the body, running high fevers or any other concerning symptoms return to the ER. KASEY GOODMAN DO Oct 05, 2021 10:25
== END 2021-10-05 10:40 | disposition home or self-care (01) ==
LOC: ER 09:43
DX: I80.9 Phlebitis and thrombophlebitis of unspecified site (principal)
CPT/HCPCS: 99282

== ENCOUNTER → 2022-02-16 | Outpatient (CLI) | payer OTHER ==
--- NOTE | 2022-02-16 17:09 | CARD ---
MR#: [id number] Date of Study: 02/16/2022 Ordering Physician: MIGUEL ULLOA, Referring Physician: Vj ABERNATHY: Woodrow Brown [facility] APPROVED REPORT EXAM: Two-dimensional and M-mode echocardiogram with Doppler and color Doppler. Other Information Quality : GoodHR: 72bpm Rhythm : NSR INDICATION Non Ischemic cardiomyopathy 2D DIMENSIONS Left Atrium(2D)4.3 (1.6-4.0cm)IVSd1.1 (0.7-1.1cm) Aortic Root(2D)3.6 (2.0-3.7cm)LVDd6.1 (3.9-5.9cm) LVOT Diameter2.1 (1.8-2.4cm)PWd1.1 (0.7-1.1cm) LA Zdjkmt55 (18-58mL)LVDs5.3 (2.5-4.0cm) FS (%) 12.8 %SV49.7 ml LVEF(%)27.0 (>50%) Aortic Valve AoV Peak Diaz.136.2cm/sAoV VTI24.4cm AO Peak GR.7.4mmHgLVOT Peak Diaz.76.1cm/s AO Mean GR.4mmHgAVA (VMAX)1.86cm2 Mitral Valve MV E Nrgghmep60.2cm/sMV E Peak Gr.8mmHg MV DECEL [id number] A Rsxmmipe053.4cm/s MV E Mean Gr.2mmHgE/A Ratio0.4 Pulmonary Valve PV Peak Feyzgvcd40.8cm/s Tricuspid Valve TR P. Jmmswsmu157im/sTR Peak Gr.13mmHg Pulmonary Vein S1 Urvbqgjv00.6cm/sD2 Aqqbiavv36.8cm/s LEFT VENTRICLE The Left Ventricle is moderately dilated. There is normal left ventricular wall thickness. The systol ic function is severely impaired. The Ejection Fraction is 25-30%. There is global hypokinesis of the left ventricle. Transmitral Doppler flow pattern is Grade I-abnormal relaxation pattern. No left gracia tricle thrombus noted on this study. There is no ventricular septal defect visualized. There is no le ft ventricular aneurysm. There is no mass noted in the left ventricle. RIGHT VENTRICLE The right ventricle is normal size. There is normal right ventricular wall thickness. The right ventr icular systolic function is normal. ATRIA The left atrium is mildly dilated. The right atrium size is normal. The interatrial septum is intact with no evidence for an atrial septal defect or patent foramen ovale as noted on 2-D or Doppler imagi ng. AORTIC VALVE The aortic valve is mildly sclerotic. The aortic valve is trileaflet. Doppler and Color Flow revealed no significant aortic regurgitation. There is no significant aortic valvular stenosis. There is no a ortic valvular vegetation. MITRAL VALVE The mitral valve is mildly thickened. There is no evidence of mitral valve prolapse. There is no mitr al valve stenosis. Doppler and Color-flow revealed mild to moderate mitral regurgitation. TRICUSPID VALVE The tricuspid valve is normal in structure and function. Doppler and Color Flow revealed trace tricus pid regurgitation. There is no tricuspid valve prolapse or vegetation. There is no tricuspid valve st enosis. PULMONIC VALVE Doppler and Color Flow revealed no pulmonic valvular regurgitation. There is no pulmonic valvular beckie nosis. GREAT VESSELS The aortic root is normal in size. The ascending aorta is normal in size. The IVC is normal in size a nd collapses >50% with inspiration. PERICARDIAL EFFUSION There is no pleural effusion. There is no evidence of significant pericardial effusion. Critical Notification Critical Value: No <Conclusion> The Left Ventricle is moderately dilated. The systolic function is severely impaired. The Ejection Fraction is 25-30%. There is global hypokinesis of the left ventricle. Doppler and Color-flow revealed mild to moderate mitral regurgitation. Signed by : Pankaj Nazario, Electronically Approved : 02/16/2022 17:09:17
== END ==
LOC: ECHO 09:56
PROVIDERS: ATTEND Internal Medicine Cardiovascular Disease
DX: I08.0 Rheumatic disorders of both mitral and aortic valves (principal); I42.8 Other cardiomyopathies
CPT/HCPCS: 93306; C8929